=== PATIENT | female | born 2000 | race Caucasian/White ===

== ENCOUNTER 2024-07-07 02:44 | Emergency (ER) | payer OTHER, SELFPAY ==
[2024-07-07 02:45] VITALS: BP 134/77; PULSE 101; RESP 15; TEMP 36.9; O2SAT 97; BMI 22.5
[2024-07-07] MEDS: levETIRAcetam 250 MG Tablet PO (03:47)
== END 2024-07-07 04:05 | disposition home or self-care (01) ==
LOC: ED 03:45
PROVIDERS: Emergency Provider Emergency Medicine; Visit Provider Emergency Medicine
DX: G40.909 Epilepsy, unspecified, not intractable, without status epilepticus (principal); F41.9 Anxiety disorder, unspecified; F17.210 Nicotine dependence, cigarettes, uncomplicated; Z79.899 Other long term (current) drug therapy
CPT/HCPCS: 99284

== ENCOUNTER 2024-07-12 23:32 | Emergency (ER) | payer OTHER, SELFPAY ==
[2024-07-12 23:33] VITALS: BP 120/105; PULSE 99; RESP 16; TEMP 37; O2SAT 96; BMI 23.1
--- NOTE | 2024-07-12 23:47 | EDS_ITS ---
HPI History of Present Illness Chief Complaint: Seizure Narrative Narrative: 23-year-old female past medical history of epilepsy presents status post breakthrough seizure. She states that she sees Dr. Rudy Akbar, a neurologist in [place]. They recently changed her medications from Dilantin to Keppra. She had taken Keppra earlier when she was younger but got switched to Dilantin. She elected and asked her neurologist to change her back to Keppra because she felt it would be better for her long-term. She started out taking 750 mg twice a day. It was recently changed to 1 g twice a day because within the last week she had a breakthrough seizure. This evening, she forgot to take her evening dose of her medication and was 2 hours late. She went to bed, and she awoke with EMS present because her states that she had a seizure for 1 to 2 minutes. She denies loss of bowel or bladder but she has a headache now. She denies any recent fevers or chills, no problems with urination, no other symptoms. [facility] Medical History Anxiety Epilepsy Home Medications ?Medication ?Instructions ?Recorded ?Last Taken ?Type escitalopram oxalate 10 mg tablet 10 mg PO DAILY 07/07/24 Unknown History (Lexapro) levetiracetam 1,000 mg tablet 1,000 mg PO BID #60 tabs 07/07/24 Unknown Rx (Keppra) Allergy/AdvReac Type Severity Reaction Status Date / Time No Known Allergies Allergy Verified 07/12/24 23:33 Social History Smoking Status: Current every day smoker tobacco type: cigarettes and e- cigarettes ROS ROS ED ROS Narrative Constitutional: No fever, no chills. HEENT: No sore throat. No neck pain. No loss of vision. No rhinorrhea. Cardiovascular: No chest pain. No palpitations. No pedal edema. Respiratory: No cough, no shortness of breath. Abdominal: No abdominal pain. No nausea. No vomiting. Genitourinary: No dysuria. No hematuria. Musculoskeletal: No myalgias. No arthralgias. Neurologic: No headaches. No dizziness. No lightheadedness. Positive seizure/breakthrough seizure lasting 1 to 2 minutes this evening as witnessed by her . Skin: No rash. No change in color. Psychiatric: No depression. No anxiety. EXAM Physical Exam Narrative Exam Narrative: Afebrile. Vital signs noted. PERRL, EOMI. Sitting crosslegged on the cot, in no acute distress. Cardiovascular examination reveals a regular rate and rhythm. Lungs are clear to auscultation bilaterally. Abdomen is soft nontender with normal active bowel sounds. Neurological examination shows her to be awake, alert, and oriented. Exam is nonfocal and nonlateralizing, moves all extremities. Const Vital Signs: 07/12/24 23:33 Temperature 98.6 F Temperature Source Oral Pulse Rate 99 Respiratory Rate 16 Blood Pressure 120/105 H Blood Pressure Mean 110 Pulse Ox 96 Oxygen Delivery Method Room Air MDM MDM MDM Narrative Medical decision making narrative: I reviewed the patient's prior records. She has had history of breakthrough seizures. Seizure precautions were instilled. She was given Tylenol 1 g orally for headache. No feel laboratory work or imaging is indicated. She has known epilepsy and is currently trying to make her Keppra therapeutic. Keppra level was drawn and sent. I was able to discuss the patient with her neurologist, Dr. Akbar, who agrees with sending a Keppra level, and oral loading of the 1000 mg of Keppra as she is awake, alert, and oriented, and at her baseline. He requested a test as well. Family states that they did a test yesterday which was negative. Serum test obtained and reviewed here which is also negative. At this point in time, I feel she can be discharged to follow-up with her neurologist. She will have her EEG performed on Monday as well. Return instructions to the emergency department were reviewed. Disposition is discharged home in stable condition. History & Record Review Discussion w/independent historian: Patient Lab Data Attestation: I reviewed the patient's lab results. Labs: Laboratory Results - last 24 hr 07/13/24 00:08 Serum , Qual NEGATIVE Discharge Plan Triage Chief Complaint: Seizure ED Provider: Jadon Ridley Dx/Rx/DC Orders Clinical Impression: Breakthrough seizure, History of epilepsy Instructions: ED Seizure, Recurrent (Adult) Prescriptions: No Action escitalopram oxalate [Lexapro] 10 mg tablet 10 mg PO DAILY levetiracetam [Keppra] 1,000 mg tablet 1,000 mg PO BID Qty: 60 0RF Primary Care Provider: Care Physician,No Primary Referrals: Care Physician,No Primary [Primary Care Provider] - Activity Restrictions/Additional Instructions: Continue your Keppra 1000 mg twice a day orally. Follow-up with Dr. Abkar your neurologist as soon as possible on Monday. Have your EEG performed on Monday as well. Return with new or worsening symptoms. Print Language: Czech Disposition Disposition: Home, Self Care
[2024-07-12] MEDS: Acetaminophen 500 MG Tablet 1000 MG PO (23:51)
[2024-07-13] MEDS: levETIRAcetam 1,000 MG Tablet 1000 MG PO (00:06)
[2024-07-13 00:37] LABS: Internal QC Validated? YES +Cl - CLEAR BKGD; Pregnancy, Serum, hCG Quali. NEGATIVE Negative
[2024-07-13 01:07] VITALS: BP 115/69; PULSE 85; RESP 16; TEMP 37; O2SAT 96
[2024-07-16 15:08] LABS: KEPPRA (LEVETIRACETAM) 18.9 ug/mL (10.0-40.0)
== END 2024-07-13 01:31 | disposition home or self-care (01) ==
PROVIDERS: Emergency Provider Emergency Medicine; Visit Provider Emergency Medicine
DX: G40.909 Epilepsy, unspecified, not intractable, without status epilepticus (principal); R51.9 Headache, unspecified; F41.9 Anxiety disorder, unspecified; F17.210 Nicotine dependence, cigarettes, uncomplicated; F17.290 Nicotine dependence, other tobacco product, uncomplicated; Z79.899 Other long term (current) drug therapy
CPT/HCPCS: 80177; 84703; 99285; A4216

== ENCOUNTER 2024-07-13 15:08 | Emergency (ER) | payer OTHER, SELFPAY ==
[2024-07-13 15:09] VITALS: BP 118/76; PULSE 96; RESP 19; TEMP 36.8; O2SAT 97; BMI 26.2
--- NOTE | 2024-07-13 15:34 | EDS_ITS ---
HPI History of Present Illness Chief Complaint: Seizure Narrative Narrative: Chief complaint and HPI: Breakthrough seizure. 23-year-old female with past medical history of epilepsy presents for evaluation of breakthrough seizure. Patient states that [place]. She sees Dr. Rudy Akbar with neurology. Patient states that she used to be on 200 mg Dilantin twice daily but 3 weeks ago was switched to Keppra at 1000 mg twice daily. Patient states that she developed a seizure on Monday. She has had 5 seizures today. Patient was seen earlier in our emergency department for breakthrough seizure as well. She was loaded with 1000 mg of Keppra orally. test was negative and Keppra level was sent. Patient was discharged home with follow-up and plans for EEG on Monday. Patient states since discharging home she has had 4 more seizures. She denies any oral trauma. Denies loss of bowel or bladder. States she has a mild headache. Denies any fever, chills, shortness of breath, chest pain, URI symptoms abdominal pain, nausea, vomiting, dysuria. On chart review, Keppra level is still pending. Review of systems: See HPI Medications: As listed on the chart Allergies: As listed on the chart PFSH: Per chart Vital signs: As listed on the chart. Reviewed. Physical exam: Gen: A&O x3, NAD Head: Normocephalic, atraumatic Eyes: No sclera icterus, conjunctiva clear, PERRL, EOMI ENT: Moist mucous membranes Neck: Trachea midline, No JVD CV: RRR, no murmurs, no peripheral edema Resp: Lungs CTA BL, no w/r/c GI: Abd soft, non-distended, non-tender, no r/r/g Musc: Full ROM, no deformity Skin: Warm, dry Neuro: Alert, oriented, grossly intact, sensation intact Psych: Cooperative, appropriate mood and affect [facility] Medical History Anxiety Epilepsy Home Medications ?Medication ?Instructions ?Recorded ?Last Taken ?Type escitalopram oxalate 10 mg tablet 10 mg PO DAILY 07/07/24 Unknown History (Lexapro) levetiracetam 1,000 mg tablet 1,000 mg PO BID #60 tabs 07/07/24 Unknown Rx (Keppra) Allergy/AdvReac Type Severity Reaction Status Date / Time No Known Allergies Allergy Verified 07/13/24 15:09 Social History Smoking Status: Current every day smoker tobacco type: cigarettes and e- cigarettes EXAM Physical Exam Const Vital Signs: 07/13/24 15:09 07/13/24 17:00 Temperature 98.2 F Temperature Source Oral Pulse Rate 96 80 Respiratory Rate 19 H 17 Blood Pressure 118/76 114/69 Blood Pressure Mean 90 83 Pulse Ox 97 99 Oxygen Delivery Method Room Air MDM MDM MDM Narrative Medical decision making narrative: 23-year-old female with past medical history of epilepsy presents for evaluation of breakthrough seizure. Patient was seen in our emergency department earlier today and loaded with Keppra after speaking with her neurologist. Had a negative at that time. Patient states she has continued to have 4 more seizures today. Her previous Keppra level is pending. Given that patient has continued to have seizures we will get basic labs and urine to assess for electrolyte abnormality, dehydration, UTI, anemia. Tylenol ordered for headache. CBC without leukocytosis or anemia. BMP unremarkable except for hypoglycemia of 34. Dextrose ordered and patient was given juice and a sandwich. Patient states that she has not ate or drank anything all day. This is likely the cause of her hypoglycemia, this may have been what triggered her seizures. Repeat blood sugar 124. UA positive for leuk esterase, WBCs, bacteria this is concerning for UTI however this is not the cleanest sample with 10-25 squamous epithelial cells. The urine is cloudy. Will send for culture an d given her increase in seizures we will treat for possible UTI. Patient ordered Keflex. Given patient has had 5 seizures in the past 2 days, Dr. Akbar her neurologist was contacted and patient was discussed. He states the patient will likely have to increase to 1500 mg twice daily of Keppra. Recommends giving another 500 mg orally now. Recommends patient being transferred to [facility] for further evaluation and monitoring. Patient was updated of all the results and confirmed understanding of the plan. I spoke with Dr. Arita at [facility] and he accepted transfer. Patient will be transferred by local ambulance. Impression: 1. Recurrent breakthrough seizure 2. History of epilepsy 3. Questionable UTI 4. Hypoglycemia, resolved Lab Data Labs: Laboratory Results - last 24 hr 07/13/24 07/13/24 07/13/24 15:15 15:55 16:45 WBC 6.9 RBC 4.60 Hgb 13.9 Hct 40.0 MCV 87.0 MCH 30.2 MCHC 34.8 RDW Std Deviation 39.4 RDW Coeff of Goran 12.5 Plt Count 197 MPV 12.2 H Immature Gran % (Auto) 0.300 Neut % (Auto) 66.1 Lymph % (Auto) 24.4 Harney % (Auto) 7.8 Eos % (Auto) 1.3 Baso % (Auto) 0.1 Absolute Neuts (auto) 4.6 Absolute Lymphs (auto) 1.69 Nucleated RBC % 0 Sodium 137 Potassium 4.0 Chloride 107 Carbon Dioxide 26.0 Anion Gap 4 L BUN 10 Creatinine 0.73 Estim Creat Clear Calc 120.92 Est GFR (MDRD) Af Amer 124 Est GFR (MDRD) Non-Af 102 BUN/Creatinine Ratio 13.7 Glucose 34 L* Calcium 8.6 Total Bilirubin 0.50 AST 20 ALT 40 Alkaline Phosphatase 67 Total Protein 7.0 Albumin 3.9 Globulin 3.1 Albumin/Globulin Ratio 1.3 Urine Color Yellow Urine Clarity Cloudy Urine pH 5.0 Ur Specific [place] 1.025 Urine Protein 30 H Urine Glucose (UA) Normal Urine Ketones Negative Urine Occult Blood 10 H Urine Nitrite Negative Urine Bilirubin Negative Urine Urobilinogen Normal Ur Leukocyte Esterase 500 H Urine RBC 5-10 SEEN Urine WBC 25-50 SEEN Ur Squamous Epith Cells 10-25 SEEN Urine Bacteria 2+ Urine Mucus 0 SEEN POC Glucose 124 H Discharge Plan Triage Chief Complaint: Seizure ED Provider: Nabil Palomo Dx/Rx/DC Orders Prescriptions: No Action escitalopram oxalate [Lexapro] 10 mg tablet 10 mg PO DAILY levetiracetam [Keppra] 1,000 mg tablet 1,000 mg PO BID Qty: 60 0RF Primary Care Provider: Care Physician,No Primary Referrals: Care Physician,No Primary [Primary Care Provider] - Print Language: Kenyan
[2024-07-13 15:38] LABS: Absolute Lymphocyte Count 1.69 X10^3/uL (0.83-4.51); Absolute Neutrophil Count 4.6 X10^3/uL (2.0-7.7); Basophil# 0.01 X10^3/uL; Basophil% 0.1 % (0-1); Eosinophil# 0.09 X10^3/uL; Eosinophils% 1.3 % (0-5); Hemoglobin 13.9 g/dL (12.0-15.0); Lymphocyte # 1.69 X10^3/ul (0.83-4.51); Lymphocyte % 24.4 % (19-41); Mean Corp Hgb Conc 34.8 g/dL (32-36); Mean Corpuscular Hgb 30.2 pg (27.0-32.0); Mean Platelet Vol. 12.2 fl (6.2-12.0); Monocyte# 0.54 X10^3/uL; Monocyte% 7.8 % (0-10); NRBC Flagged by Analyzer 0 % (0-5); Neutrophil # 4.57 X10^3/uL (2.7-7.7); Neutrophil % 66.1 % (47-70); Platelet Count 197 K/mm3 (150-450); RBC Distribution Width CV 12.5 % (11.6-14.6); RBC Distribution Width SD 39.4 fl (35.1-43.9); White Blood Count 6.9 K/mm3 (4.4-11.0)
[2024-07-13] MEDS: Acetaminophen 500 MG Tablet 1000 MG PO (15:49)
[2024-07-13 16:05] LABS: ALB/GLOB Ratio 1.3 RATIO (0.9-2.4); AST(SGOT) 20 U/L (15-37); Alanine Aminotransfer ALT/SGPT 40 U/L (13-56); Albumin, Serum 3.9 g/dL (3.2-5.0); Alkaline Phosphatase 67 U/L (45-117); Anion Gap 4 (5-15); BUN 10 mg/dL (7-18); BUN/Creat Ratio 13.7 RATIO (10-20); Calcium,Total 8.6 mg/dL (8.5-10.1); Chloride 107 mmol/L (98-107); Creatinine, Serum 0.73 mg/dL (0.55-1.02); EST Glomerular Filtration Rate 102 mL/min (>60); Est Glom Filt Rate - Afr Amer 124 mL/min (>60); Estimated Creatinine Clearance 120.92 ml/min; Globulin 3.1 g/dL (2.2-4.2); Glucose 34 mg/dL (74-106); Sodium Level 137 mmol/L (136-145)
[2024-07-13] MEDS: Dextrose 10%-Water 250 ML 999 ML IV (16:09)
[2024-07-13 16:10] LABS: Mucous, Urine 0 SEEN /hpf (<or=2+)
[2024-07-13 16:17] LABS: Color, Urine Yellow (Yellow); Glucose, Dipstick Normal (Normal); Ketone-Dipstick Negative (Negative); Leukocyte Esterase-Dipstick 500 /ul (Negative); Nitrite-Dipstick Negative (Negative); Occult Blood-Urine 10 /ul (Negative); Protein-Dipstick 30 mg/dl (Negative); Specific Gravity, Urine 1.025 (1.002-1.030); Urine Bilirubin Dipstick Negative (Negative); Urine Clarity Cloudy (Clear); Urine Urobilinogen Normal (Normal)
[2024-07-13 16:39] LABS: Bacteria 2+ /hpf (None Seen); Squamous Epithelial Cells - UA 10-25 SEEN /hpf (5-10)
[2024-07-13 16:40] LABS: Red Blood Cells-Urine 5-10 SEEN /hpf (0-5)
[2024-07-13 16:41] LABS: White Blood Cells 25-50 SEEN /hpf (0-5)
[2024-07-13 17:00] VITALS: BP 114/69; PULSE 80; RESP 17; O2SAT 99
[2024-07-13 17:05] LABS: Bedside Glucose 124 mg/dL (74-106)
[2024-07-13] MEDS: Cephalexin 250 MG Capsule 500 MG PO (17:09)
[2024-07-13] MEDS: levETIRAcetam 500 MG Tablet PO (17:35)
--- NOTE | 2024-07-13 18:37 | ED.RN ---
PT ACCEPTED AT [place] [id number]
[2024-07-13 19:00] VITALS: BP 120/64; PULSE 71; RESP 15; O2SAT 98
[2024-07-13 19:31] VITALS: BP 112/68; PULSE 82; RESP 16; TEMP 36.6; O2SAT 99
[2024-07-13 19:37] LABS: Bedside Glucose 90 mg/dL (74-106)
== END 2024-07-13 19:49 | disposition short-term general hospital (02) ==
LOC: ED 15:37
PROVIDERS: Emergency Provider Surgery; Visit Provider Surgery
DX: G40.909 Epilepsy, unspecified, not intractable, without status epilepticus (principal); E16.2 Hypoglycemia, unspecified; F41.9 Anxiety disorder, unspecified; F17.210 Nicotine dependence, cigarettes, uncomplicated; F17.290 Nicotine dependence, other tobacco product, uncomplicated; Z79.899 Other long term (current) drug therapy
CPT/HCPCS: 80053; 81001; 82962; 85025; 87086; 96365; 99285; A4216

== ENCOUNTER 2024-07-25 23:41 | Emergency (ER) | payer OTHER, SELFPAY ==
[2024-07-25 23:41] VITALS: BP 126/75; PULSE 88; RESP 14; TEMP 36.5; O2SAT 96; BMI 23.1
[2024-07-25 23:48] VITALS: PULSE 100; RESP 25
[2024-07-26] VITALS: BP 122/80; PULSE 86; RESP 15
[2024-07-26 00:15] VITALS: BP 120/67
--- NOTE | 2024-07-26 00:27 | EDS_ITS ---
HPI History of Present Illness Chief Complaint: Seizure Informant: patient, spouse/S.O. and EMS Narrative Narrative: History of seizures, she was doing pretty well until a month or 2 ago when her doctor switch her off of Dilantin because she was having gingival side effects and put her on Keppra, she started having breakthrough seizures. She was moved up from 750 twice daily to 1000 twice daily. Still having breakthrough seizures, admitted to [facility] for continuous EEG monitoring, then started on lamotrigine 25 mg daily which she is on now and had another breakthrough seizure tonight. Significant other witnessed it, it was tonic-clonic lasted less than 5 minutes, she was postictal and then she was agitated and angry afterwards, and that gradually resolved the patient does not remember that, she feels back to normal now except for having a headache and feeling tired but it is around midnight as well. She was asleep in her bed when this started. She states she checked her blood sugar before going to bed because she had a hypoglycemic seizure couple weeks ago here when her sugar was 34, she states it was in her 70s tonight so she drank some juice and checked her sugar again later as she was going to bed and it was in the 120s. EMS checked it prior to coming here and she was 71. [facility] Medical History Anxiety Epilepsy Home Medications ?Medication ?Instructions ?Recorded ?Last Taken ?Type escitalopram oxalate 10 mg tablet 10 mg PO DAILY 07/07/24 Unknown History (Lexapro) levetiracetam 1,000 mg tablet 1,000 mg PO BID #60 tabs 07/07/24 Unknown Rx (Keppra) folic acid 400 mcg tablet 400 mcg PO DAILY 07/25/24 Unknown History lamotrigine 25 mg tablet 25 mg PO DAILY 07/25/24 Unknown History levetiracetam 500 mg tablet 500 mg PO BID #60 tabs 07/26/24 Unknown Rx (Keppra) Allergy/AdvReac Type Severity Reaction Status Date / Time No Known Allergies Allergy Verified 07/25/24 23:50 Social History Smoking Status: Current every day smoker tobacco type: cigarettes and e- cigarettes ROS ROS ED Constitutional Constitutional ED: Reports fatigue; Denies chills or fever(s) Eyes Eyes: Denies change in vision or diplopia ENT ENT ED: Denies rhinorrhea or sore throat Cardiovascular Cardiovascular: Denies chest pain or palpitations Respiratory/Chest Respiratory/Chest: Denies cough or dyspnea Gastrointestinal Gastrointestinal: Denies abdominal pain, diarrhea, nausea or vomiting Genitourinary Genitourinary ED: Denies dysuria or hematuria Musculoskeletal Musculoskeletal: Denies back pain or neck pain Integumentary Denies abscess or rash Neurologic Neurologic: Reports headache(s); Denies paresthesias or weakness Psychiatric Psychiatric: Denies anxiety or suicidal thoughts EXAM Physical Exam Const Vital Signs: 07/25/24 23:41 07/25/24 23:48 07/26/24 00:00 Temperature 97.7 F L Temperature Source Oral Pulse Rate 88 100 86 Respiratory Rate 14 25 H 15 Blood Pressure 126/75 H 122/80 H Blood Pressure Mean 92 93 Pulse Ox 96 Oxygen Delivery Method Room Air 07/26/24 00:15 07/26/24 00:30 07/26/24 00:45 Temperature Temperature Source Pulse Rate 84 77 Respiratory Rate 15 16 Blood Pressure 120/67 115/77 104/63 Blood Pressure Mean 84 86 75 Pulse Ox Oxygen Delivery Method Positive well nourished and well developed General Appearance ED: well developed and NAD HEENT Reports moist mucous membranes normocephalic and atraumatic Eyes PERRL and EOMs intact bilaterally Neck full ROM and supple Resp normal respiratory effort and clear to auscultation bilaterally Cardio regular rate, regular rhythm and no murmurs GI non-tender and non-distended Auscultation: normoactive bowel sounds Palpation: soft Back/Spine no CVA tenderness General Back: other FROM Extremity normal to inspection General Extremety ED: Negative for edema, pulses abnormal or tenderness General Extremity: Negative for edema or pulses abnormal Neuro oriented x3, CN's II-XII intact bilaterally and no sensory deficits noted Sensorium / Orientation: awake and alert Motor Exam: strength 5/5 throughout Skin no rashes or lesions noted and no wounds MDM MDM MDM Narrative Medical decision making narrative: Recheck the blood sugar again a little while after she was dropped off here, while being observed, it is 94. I do not think she had a hypoglycemic seizure based on the available data tonight. I attempted to contact Dr. Akbar or the on-call neurologist, which is who she sees as an outpatient, after 1-2 hours of waiting for some the callback the patient did not want to stay anymore she had no further seizure activity. I reviewed the prior ED physician's note 2 weeks ago before she was transferred up to [facility]. They had spoken with her neurologist who would consider increasing her Keppra to 1500 mg twice daily. Right now she is on 1000 mg twice daily, and a prescription for lamotrigine immediate release 25 mg was for her to take it once daily for 2 weeks and then to increase to twice daily, she is [facility] the [facility] at about 1 week of taking it. Therefore for now ongoing to increase her Keppra to 1500 mg twice daily, I am going to give her prescription for the 500 mg pills so that she can add that to the 1000 mg pills that she is currently taking and give her another 500 mg prior to discharge and she and the are comfortable with that overall plan of following up. Lab Data Attestation: I reviewed the patient's lab results. Labs: Laboratory Results - last 24 hr 07/26/24 00:23 POC Glucose 94 Discharge Plan Triage Chief Complaint: Seizure ED Provider: Jonathan Madsen Dx/Rx/DC Orders Clinical Impression: Breakthrough seizure, Epilepsy Instructions: ED Seizure, Recurrent (Adult) Prescriptions: New levetiracetam [Keppra] 500 mg tablet 500 mg PO BID Qty: 60 0RF Continued lamotrigine 25 mg tablet 25 mg PO DAILY folic acid 400 mcg tablet 400 mcg PO DAILY escitalopram oxalate [Lexapro] 10 mg tablet 10 mg PO DAILY levetiracetam [Keppra] 1,000 mg tablet 1,000 mg PO BID Qty: 60 0RF Primary Care Provider: Care Physician,No Primary Referrals: Rudy Akbar MD [Non-Staff] - As soon as possible Print Language: Indonesian Disposition Disposition: Home, Self Care
[2024-07-26 00:30] VITALS: BP 115/77; PULSE 84; RESP 15
[2024-07-26 00:42] LABS: Bedside Glucose 94 mg/dL (74-106)
[2024-07-26 00:45] VITALS: BP 104/63; PULSE 77; RESP 16
[2024-07-26 01:00] VITALS: BP 106/66; PULSE 100; RESP 17; O2SAT 98
[2024-07-26] MEDS: levETIRAcetam 500 MG Tablet PO (01:38)
[2024-07-26] MEDS: Acetaminophen 500 MG Tablet 1000 MG PO (01:38)
[2024-07-26 01:40] VITALS: BP 106/66; PULSE 71; RESP 16; TEMP 36.3; O2SAT 96
== END 2024-07-26 01:48 | disposition home or self-care (01) ==
PROVIDERS: Emergency Provider Emergency Medicine; Visit Provider Emergency Medicine
DX: G40.909 Epilepsy, unspecified, not intractable, without status epilepticus (principal); Z79.899 Other long term (current) drug therapy; F41.9 Anxiety disorder, unspecified; F17.210 Nicotine dependence, cigarettes, uncomplicated; F17.290 Nicotine dependence, other tobacco product, uncomplicated
CPT/HCPCS: 82962; 99285; A4216

== ENCOUNTER 2024-09-01 20:09 | Emergency (ER) | payer OTHER, SELFPAY ==
[2024-09-01 20:11] VITALS: BP 121/74; PULSE 84; RESP 16; TEMP 36.7; O2SAT 99; BMI 23.1
--- NOTE | 2024-09-01 20:48 | EX.ED.DYSGE1 ---
HPI History of Present Illness Chief Complaint: Seizure [facility] Medical History Anxiety Epilepsy Home Medications ?Medication ?Instructions ?Recorded ?Last Taken ?Type escitalopram oxalate 10 mg tablet 10 mg PO DAILY 07/07/24 Unknown History (Lexapro) levetiracetam 1,000 mg tablet 1,000 mg PO BID #60 tabs 07/07/24 Unknown Rx (Keppra) folic acid 400 mcg tablet 400 mcg PO DAILY 07/25/24 Unknown History lamotrigine 25 mg tablet 25 mg PO DAILY 07/25/24 Unknown History levetiracetam 500 mg tablet 500 mg PO BID #60 tabs 07/26/24 Unknown Rx (Keppra) phenytoin sodium extended 100 mg 100 mg PO BID #60 caps 09/01/24 Unknown Rx capsule (Dilantin Extended) Allergy/AdvReac Type Severity Reaction Status Date / Time No Known Allergies Allergy Verified 09/01/24 20:10 Social History Smoking Status: Current every day smoker tobacco type: cigarettes and e-cigarettes EXAM Physical Exam Const Vital Signs: 09/01/24 20:11 09/01/24 22:10 Temperature 98.0 F Temperature Source Oral Pulse Rate 84 88 Respiratory Rate 16 28 H Blood Pressure 121/74 H 99/75 Blood Pressure Mean 89 83 Pulse Ox 99 93 Oxygen Delivery Method Room Air Room Air MDM MDM MDM Narrative Medical decision making narrative: HISTORY OF PRESENT ILLNESS: 23-year-old female presents with concern for seizure. Notes over the last few months she has had recurrent seizures. Typically gets seizure once a week after switching from Dilantin to Keppra. She currently takes 1 g of Keppra twice a day, as well as Lamictal. She denies noncompliance of medication. Denies fever. Denies vomiting or diarrhea. Denies any head trauma. Her last menstrual period was 2 weeks ago. Denies urinary complaints. REVIEW OF SYSTEMS: Pertinent positives: Seizure Pertinent negatives: Numbness, tingling or loss of sensation PHYSICAL EXAM: Nursing triage notes reviewed, Vital signs reviewed Constitutional: please see mdm HENT: MMM Eyes: Pupils equal round and reactive to light, Extraocular muscles intact Neck: No stridor, no JVD, full neck ROM Lungs: Clear to auscultation, No wheezing or rales. No increased work of breathing, no conversational dyspnea, no accessory muscle use, no nasal flaring. No respiratory distress noted Heart: Regular rate and rhythm, No murmurs, No rubs and No gallops, 2+ distal pulses (radial, femoral, posterior tibial) in all extremities Abdomen: Soft, there is no tenderness, rigidity, rebound or guarding, no obvious peritoneal signs, no palpable pulsatile abdominal masses, no auscultated abdominal bruit : No CVAT Extremities: No edema Neuro: Alert and oriented x3, neuro exam at baseline, cranial nerves II through XII are intact. No pain with extraocular muscle movement. There is negative test of skew. 5 of 5 strength in upper and lower extremities in flexion extension. Intact sensation to light touch in upper and lower extremity dermatomes. No truncal or extremity ataxia. 2+ reflexes in upper and lower extremities. No meningeal signs. Negative Babinski. NIH of 0. Skin: No rash or lesions noted MEDICAL DECISION MAKING: Chief Complaint: Seizure External records reviewed: Reviewed prior notes. Reviewed note from July 2024. Reviewed patient's medication which is currently lamotrigine 25 mg daily Keppra 1500 mg twice daily Factors affecting care: Seizures Social determinants of health: none History obtained from others: none Consults: none [facility] Narrative: Patient was initially hemodynamically stable, afebrile and nontoxic-appearing. Exam without focal neurologic deficits. Patient comfortable. Alert and orient x 3. I considered the following differential diagnosis: ICH, breakthrough seizure, electrolyte abnormality, related complication I obtained labs images to rule out precipitating cause of seizure ALL IMAGES (IF OBTAINED) HAVE BEEN PERSONALLY REVIEWED AND INTERPRETED BY MYSELF. EKG with normal sinus rhythm, rate of 65, normal axis, no intervals, no STEMI CBC without leukocytosis, severe anemia, no thrombocytopenia. CMP without evidence of acute kidney injury, significant electrolyte abnormality, anion gap to suggest end organ hypo-perfusion, no evidence of metabolic acidosis with a normal bicarbonate, no evidence of hepatobiliary obstructive pathology. Urine test is negative CT scan of the head shows no evidence of ICH or mass On re-evaluation the patient was alert, oriented to person place and time. She was nonfocal neuroexam. Neuroexam was at baseline Of note the patient's blood sugar was 61 on her CMP. This brings up the suspicion for a hypoglycemia is a potential precipitating cause of her seizure. [id number] glucose checks after her seizure revealed a level of 85 making this less likely. Patient had full return to baseline prior to second seizure. There is no sign of status epilepticus. She did receive a small dose of 1 mg of Ativan after her seizures spontaneously aborted. No clear life-limiting etiology could explain the patient's symptoms. Likely breakthrough seizure. I had a long discussion about medications that have worked for her in the past. We settled on writing her prescription for Dilantin to have her call their neurologist to see if he thought this is a although antiepileptic to initiate versus initiating a new antiepileptic. The patient and/or family, caregivers express understanding. The patient and/or family, caregivers agrees with the plan. Shared decision making: I will have a discussion with the patient and or visitors regarding risk/benefits of further testing or admission. They will be made aware of of the risk/benefits inherent in this decision they will be given the opportunity to voice understanding. Total critical care time today provided was at least 0 minutes. This excludes separately billable procedures. Critical care time (if documented) is secondary to the patient having high probability of clinically significant/life threatening deterioration in the patient's condition which required my urgent intervention. Impression: 1. Breakthrough seizure 2. History of seizure Dispo: Discharge home This note was generated with [employer] dictation software. It may contain incorrect words, spelling, and punctuation that were not noted in review of the chart prior to signing. Lab Data Labs: Laboratory Results - last 24 hr 09/01/24 09/01/24 09/01/24 20:16 21:12 22:46 WBC 8.0 RBC 4.39 Hgb 13.7 Hct 38.3 MCV 87.2 MCH 31.2 MCHC 35.8 RDW Std Deviation 39.8 RDW Coeff of Goran 12.5 Plt Count 213 MPV 12.4 H Immature Gran % (Auto) 0.500 Neut % (Auto) 60.7 Lymph % (Auto) 29.8 [place] % (Auto) 7.1 Eos % (Auto) 1.7 Baso % (Auto) 0.2 Absolute Neuts (auto) 4.9 Absolute Lymphs (auto) 2.39 Nucleated RBC % 0 Sodium 138 Potassium 4.1 Chloride 104 Carbon Dioxide 27.0 Anion Gap 7 BUN 8 Creatinine 0.81 Estim Creat Clear Calc 99.39 Est GFR (MDRD) Af Amer 111 Est GFR (MDRD) Non-Af 91 BUN/Creatinine Ratio 9.9 L Glucose 61 L Calcium 9.2 Total Bilirubin 0.20 AST 17 ALT 28 Alkaline Phosphatase 67 Total Protein 7.7 Albumin 3.9 Globulin 3.8 Albumin/Globulin Ratio 1.0 Urine Test Negative POC Glucose 85 Radiography Diagnostic Testing: Clinical Impression(s) from Imaging Studies Brain CT 09/01/24 21:02 IMPRESSION: No acute intracranial findings. Electronically Signed: Be Strickland MD at 22:45 EST , Discharge Plan Triage Chief Complaint: Seizure ED Provider: Nathanael Liu Dx/Rx/DC Orders Clinical Impression: Epilepsy Instructions: ED Seizure, Recurrent (Adult) Prescriptions: New phenytoin sodium extended [Dilantin Extended] 100 mg capsule 100 mg PO BID Qty: 60 0RF No Action lamotrigine 25 mg tablet 25 mg PO DAILY folic acid 400 mcg tablet 400 mcg PO DAILY levetiracetam [Keppra] 500 mg tablet 500 mg PO BID Qty: 60 0RF escitalopram oxalate [Lexapro] 10 mg tablet 10 mg PO DAILY levetiracetam [Keppra] 1,000 mg tablet 1,000 mg PO BID Qty: 60 0RF Primary Care Provider: Care Physician,No Primary Referrals: Rudy Akbar MD [Non-Staff] - Activity Restrictions/Additional Instructions: Thank you for trusting us with your care today! Your labs images were reassuring. Specifically the CT scan of your head showed no evidence of intracranial abnormalities. Your urine test was negative. We did find signs of low blood sugar once again. This was treated with oral sugar containing liquid. Please eat regular meals at regular intervals to prevent low blood sugar (hypoglycemia). Please begin taking Dilantin instead of Keppra as prescribed after discussion with your neurologist. Please return to the emergency department if your symptoms change or worsen. Please follow with your primary care physician for further outpatient evaluation and management. Print Language: Tamazight Disposition Disposition: Home, Self Care
--- NOTE | 2024-09-01 21:02 | EKG12_ITS ---
Test Reason : DYSRHYTHMIA Blood Pressure : */* mmHG Vent. Rate : 65 BPM Atrial Rate : 65 BPM P-R Int : 146 ms QRS Dur : 82 ms QT Int : 368 ms P-R-T Axes : 46 53 32 degrees QTcB Int : 382 ms Normal sinus rhythm Normal ECG Confirmed by DILMA FRIED, RIKA ([id number]), script editor ALON DOBBS ([id number]) on 09/03/2024 6:21:25 AM Referred By: Confirmed By: RIKA PEREAR MD
--- NOTE | 2024-09-01 21:02 | CT_ITS ---
INDICATION: seizure EXAMINATION: CT BRAIN - CT Head or Brain W/O Contrast Injection TECHNIQUE: Multiple axial images were obtained of the head without intravenous contrast. A radiation dose optimization technique was used for this scan. IV Contrast dosage and agent: None. COMPARISON: None. FINDINGS: BRAIN PARENCHYMA: No intra- or extra-axial hemorrhage. No evidence of acute infarct. No intracranial mass or mass effect. There is preservation of the kim/white matter interface. Posterior fossa structures are unremarkable. CSF SPACES: Appropriate for age. No hydrocephalus. Basal cisterns are patent. CALVARIUM, SKULL BASE, PARANASAL SINUSES AND MASTOID AIR CELLS: Clear. No discrete lytic or blastic abnormalities. ORBITS: Both globes, extraocular muscles, optic nerves and retrobulbar fat appear unremarkable. CT/Brain/Head without Contrast IMPRESSION: No acute intracranial findings. Electronically Signed: Be Strickland MD at 22:45 EST ,
[2024-09-01 21:17] LABS: Absolute Lymphocyte Count 2.39 X10^3/uL (0.83-4.51); Absolute Neutrophil Count 4.9 X10^3/uL (2.0-7.7); Basophil# 0.02 X10^3/uL; Basophil% 0.2 % (0-1); Eosinophil# 0.14 X10^3/uL; Eosinophils% 1.7 % (0-5); Hematocrit 38.3 % (37-47); Hemoglobin 13.7 g/dL (12.0-15.0); Lymphocyte # 2.39 X10^3/ul (0.83-4.51); Lymphocyte % 29.8 % (19-41); Mean Corp Hgb Conc 35.8 g/dL (32-36); Mean Corpuscular Hgb 31.2 pg (27.0-32.0); Mean Corpuscular Volume 87.2 fL (81-99); Mean Platelet Vol. 12.4 fl (6.2-12.0); Monocyte# 0.57 X10^3/uL; Monocyte% 7.1 % (0-10); NRBC Flagged by Analyzer 0 % (0-5); Neutrophil # 4.85 X10^3/uL (2.7-7.7); Neutrophil % 60.7 % (47-70); Platelet Count 213 K/mm3 (150-450); RBC Distribution Width CV 12.5 % (11.6-14.6); RBC Distribution Width SD 39.8 fl (35.1-43.9); Red Blood Count 4.39 M/mm3 (4.2-5.4)
[2024-09-01 21:32] LABS: Internal QC Validated? YES +Cl - CLEAR BKGD; Pregnancy, Urine Negative Negative
[2024-09-01 21:38] LABS: AST(SGOT) 17 U/L (15-37); Alanine Aminotransfer ALT/SGPT 28 U/L (13-56); Albumin, Serum 3.9 g/dL (3.2-5.0); Alkaline Phosphatase 67 U/L (45-117); Anion Gap 7 (5-15); BUN 8 mg/dL (7-18); BUN/Creat Ratio 9.9 RATIO (10-20); Calcium,Total 9.2 mg/dL (8.5-10.1); Chloride 104 mmol/L (98-107); Creatinine, Serum 0.81 mg/dL (0.55-1.02); EST Glomerular Filtration Rate 91 mL/min (>60); Est Glom Filt Rate - Afr Amer 111 mL/min (>60); Estimated Creatinine Clearance 99.39 ml/min; Globulin 3.8 g/dL (2.2-4.2); Glucose 61 mg/dL (74-106); Potassium 4.1 mmol/L (3.5-5.1); Protein, Total 7.7 g/dL (6.4-8.2); Sodium Level 138 mmol/L (136-145)
--- NOTE | 2024-09-01 22:09 | ED.RN ---
pt call light went off, tis nurse went into room to find spouse standing over bed and pt was having what looked like a seizure. this nurse called for a dr when rosanna whiteside [employer] gave a verbal order for 1mg ivp ativan. pt is stable now.
[2024-09-01 22:10] VITALS: BP 99/75; PULSE 88; RESP 28; O2SAT 93
[2024-09-01] MEDS: LORazepam 2 MG/ML Syringe 1 MG IV (22:11)
[2024-09-01 23:09] LABS: Bedside Glucose 85 mg/dL (74-106)
[2024-09-01] MEDS: Ibuprofen 200 MG Tablet 400 MG PO (23:39)
[2024-09-01] MEDS: Acetaminophen 325 MG Tablet 650 MG PO (23:39)
[2024-09-02] VITALS: BP 107/89; PULSE 100; O2SAT 98
[2024-09-02 00:05] VITALS: BP 107/89; PULSE 100; RESP 20; TEMP 36.8; O2SAT 98
== END 2024-09-02 00:14 | disposition home or self-care (01) ==
PROVIDERS: Emergency Provider Emergency Medicine; Visit Provider Emergency Medicine
DX: G40.909 Epilepsy, unspecified, not intractable, without status epilepticus (principal); R29.700 NIHSS score 0; F17.210 Nicotine dependence, cigarettes, uncomplicated; F17.290 Nicotine dependence, other tobacco product, uncomplicated
CPT/HCPCS: 70450; 80053; 81025; 82962; 85025; 93005; 96374; 99285; A4216